=== PATIENT | male | born 1995 | race Caucasian/White ===

== ENCOUNTER 2023-05-29 19:53 | Emergency (ER) | payer BC, SELFPAY ==
[2023-05-29 19:59] VITALS: BP 127/75; PULSE 82; RESP 16; TEMP 36.9; O2SAT 100; BMI 19.1
[2023-05-29 20:19] LABS: SARS-CoV-2 Ag NEGATIVE (NEGATIVE)
--- NOTE | 2023-05-29 20:41 | ED.URI1 ---
HPI - URI/Sore Throat General Chief Complaint: Upper Respiratory Infection Stated Complaint: would like to be covid tested Time Seen by Provider: 05/29/23 19:56 Source: patient Limitations: no limitations History of Present Illness HPI Narrative: This 27-year-old male who is otherwise healthy requests a COVID 19 test. He brought his girlfriend to the emergency department because she was having a fever and she tested positive for COVId 19. He is not having any symptoms. He denies any fever, cough, congestion, headache or sore throat. He has no chest pain or shortness of breath. He states he just wants to be safe because he has a friend with an elderly grandfather and if he has, but he does not want to expose him. Related Data Allergies Allergy/AdvReac Type Severity Reaction Status Date / Time No Known Drug Allergies Allergy Verified 05/29/23 20:02 Review of Systems ROS Status of ROS 10 or more systems reviewed and unremarkable except as noted in history and below [facility] Social History Smoking status: Current every day smoker Exam Narrative Exam Narrative: Nurses note and vital signs reviewed and patient is not hypoxic. General: The patient appears well and in no apparent distress. Patient is resting comfortably on cart. Skin: Warm, dry, no pallor noted. There is no rash noted. Head: Normocephalic, atraumatic Eye: Normal conjunctiva, no drainage, EOMI. PERRL Ears, Nose, Mouth, and Throat: Deferred, no complaints Cardiovascular: Regular Rate and Rhythm Respiratory: Patient is in no distress, no accessory muscle use, lungs are clear to auscultation, no wheezing, rales or rhonchi Back: non-tender, no CVA tenderness bilaterally to percussion. Neurological: A&O x4, normal speech Psychiatric: Cooperative Constitutional Vital Signs, click to edit/add: Last Vital Signs Temp 98.4 F 05/29/23 19:59 Pulse 82 05/29/23 19:59 Resp 16 05/29/23 19:59 BP 127/75 05/29/23 19:59 Pulse Ox 100 05/29/23 19:59 O2 Del Method Room Air 05/29/23 19:59 Course Vital Signs Vital signs: Vital Signs Temperature 98.4 F 05/29/23 19:59 Pulse Rate 82 01/03/24 19:59 Respiratory Rate 16 05/29/23 19:59 Blood Pressure 127/75 05/29/23 19:59 Pulse Oximetry 100 05/29/23 19:59 Oxygen Delivery Method Room Air 05/29/23 19:59 Temperature 98.4 F 05/29/23 19:59 Pulse Rate 82 05/29/23 19:59 Respiratory Rate 16 05/29/23 19:59 Blood Pressure 127/75 05/29/23 19:59 Pulse Oximetry 100 05/29/23 19:59 Oxygen Delivery Method Room Air 05/29/23 19:59 MDM - URI/Sore Throat MDM Narrative Medical decision making narrative: This patient presents requesting a Covid 19 test as his girlfriend tested positive for COVID 19 earlier today. He has no symptoms. He is not vaccinated. His physical exam and vital signs are stable. His Covid 19 test result was negative. In light of his recent exposure I suggested that he still quarantined away from anybody that could become extremely ill or who has comorbidities making Covid 19 potentially deadly for them, I also suggested that he retest in 24-36 hours. I did explain to them if he should develop symptoms that he should take Tylenol, Motrin and drink plenty of clear liquids as there is no cure for Covid 19 at this time. Lab Data Labs: Lab Results 05/29/23 Range/Units 20:04 SARS-CoV-2 (PCR) Negative (NEGATIVE) Discharge Plan Discharge Chief Complaint: Upper Respiratory Infection Clinical Impression: Exposure to confirmed case of COVID-19 Patient Disposition: Home, Self-Care Time of Disposition Decision: 20:40 Condition: Good Instructions: COVID-19 (Coronavirus Disease 2019) (ED), COVID-19: Slow the Coronavirus Spread (ED), Face Coverings (Masks) and COVID-19 (ED), Safely Care for Someone Who Has COVID-19 (ED) Stand Alone Forms: Portal Instructions Referrals: Physician,Non-Staff, MD [Primary Care Provider] - 1 week
[2023-05-30 12:00] LABS: SARS-CoV-2 NAA NOT DETECTED (NOT DETECTE)
== END 2023-05-29 20:46 | disposition home or self-care (01) ==
PROVIDERS: Emergency Provider Emergency Medicine
DX: Z20.822 Contact with and (suspected) exposure to COVID-19 (principal); Z28.310 Unvaccinated for COVID-19; F17.210 Nicotine dependence, cigarettes, uncomplicated
CPT/HCPCS: 87635; 87811; 99283